=== PATIENT | male | born 1965 | race Caucasian/White ===

== ENCOUNTER 2017-12-09 08:21 | Emergency (ER) | payer SELFPAY ==
[~2017-12-09] VITALS: Ht 175.3 cm; Wt 72.0 kg
[2017-12-09 08:24] VITALS: BP 144/90
== END 2017-12-09 09:07 | disposition home or self-care (01) ==
LOC: ED 09:02
DX: L02.212 Cutaneous abscess of back [any part, except buttock and flank] (principal)
CPT/HCPCS: 10060; 99283